=== PATIENT | male | born 1995 | race African-American/Black ===

== ENCOUNTER 2018-05-21 15:45 | Emergency (ER) | payer MEDICAID, OTHER ==
[~2018-05-21] VITALS: Ht 182.9 cm; Wt 68.0 kg
[2018-05-21] MEDS ORDERED: MORPHINE SULF INJ 2 MG/ML SYRINGE 1ML ONE (15:54)
[2018-05-21] MEDS ORDERED: cefTRIAXone 1GM/50ML D5W 50 ML IV ONE ×2 (15:55→16:00)
[2018-05-21] MEDS ORDERED: ONDANSETRON HCL 4 MG/2 ML VIAL ONE (15:55)
[2018-05-21] MEDS ORDERED: MORPHINE SULFATE 4 MG/ML SYR/VIAL IV ONE ×2 (16:00→17:45)
[2018-05-21] MEDS ORDERED: TETANUS-DIPTH-ACEL PERTUSSIS 0.5ML SYRG IM ONE (16:00)
[2018-05-21] MEDS ORDERED: ONDANSETRON HCL 4 MG/2 ML VIAL IV ONE (16:00)
[2018-05-21] MEDS ORDERED: SODIUM CHLORIDE 0.9% 1,000 ML IV ONE (16:00)
[2018-05-21 17:28] VITALS: BP 122/66
== END 2018-05-21 18:08 | disposition short-term general hospital (02) ==
LOC: ER 15:48
DX: S41.112A Laceration without foreign body of left upper arm, initial encounter (principal); S01.512A Laceration without foreign body of oral cavity, initial encounter; X99.8XXA Assault by other sharp object, initial encounter; Y93.89 Activity, other specified; Y99.8 Other external cause status; Y92.89 Other specified places as the place of occurrence of the external cause
CPT/HCPCS: 90471; 90715; 94761; 96365; 96375; 96376; 99285; J0696; J2270; J2405; J7030; 96361